=== PATIENT | male | born 1935 | race African-American/Black ===

== ENCOUNTER 2016-12-07 08:58 | Day surgery (SDC) | payer MEDICARE, OTHER ==
[~2016-12-07] VITALS: Ht 152.4 cm; Wt 61.4 kg
[~2016-12-07 08:58] MED LIST: ADV250 IH; AMLO-512 PO; ASPI-1182 PO; ATOR40TA28 PO; LOSA50TA37 PO; METO-558 PO; NAPR220T57 PO; TIOT185 IH
[2016-12-07] MEDS ORDERED: DEXAMETHASONE SOD PHOS 4 MG/ML VIAL IVP ONE (08:59)
[2016-12-07] MEDS ORDERED: LABETALOL HCL 5 MG/ML 20 ML VIAL IVP ONE (08:59)
[2016-12-07] MEDS ORDERED: MIDAZOLAM HCL 2 MG/2 ML VIAL IVP ONE (08:59)
[2016-12-07] MEDS ORDERED: HYALURONATE SOD/CHONDROITIN SOD 0.5 ML VIAL IO ONE (08:59)
[2016-12-07] MEDS ORDERED: HYALURONATE SODIUM 12 MG/ML 0.8 ML SYRINGE IO ONE (08:59)
[2016-12-07] MEDS ORDERED: POVIDONE-IODINE 10% 15 ML SOLUTION UD TP ONE (08:59)
[2016-12-07] MEDS ORDERED: FentaNYL CITRATE-PF 100 MCG/2 ML VIAL IVP ONE (08:59)
[2016-12-07] MEDS ORDERED: LIDOCAINE HCL/PF 1% 2 ML VIAL INJ ONE (08:59)
[2016-12-07] MEDS ORDERED: TETRACAINE HCL VISCOUS 0.5% 5 ML OPHTHALMIC SOLUTION OD ONE (08:59)
[2016-12-07] MEDS ORDERED: RINGERS SOLUTION,LACTATED 500 ML IV ONE ×2 (09:09→09:30)
[2016-12-07] MEDS ORDERED: MOXIFLOXACIN HCL 0.5% 3 ML OPHTHALMIC SOLUTION OD ONE (09:30)
[2016-12-07] MEDS ORDERED: DICLOFENAC SODIUM 0.1% 2.5 ML OPHTHALMIC SOLUTION OD ONE (09:30)
[2016-12-07] MEDS ORDERED: DICLOFENAC SODIUM 0.1% 2.5 ML OPHTHALMIC SOLUTION ONE (09:36)
[2016-12-07] MEDS ORDERED: MOXIFLOXACIN HCL 0.5% 3 ML OPHTHALMIC SOLUTION ONE (09:36)
[2016-12-07] MEDS ORDERED: TROPICAMIDE 1% 2 ML OPHTHALMIC SOLUTION ONE (09:36)
[2016-12-07] MEDS ORDERED: PHENYLEPHRINE HCL 2.5% 2 ML OPHTHALMIC SOLUTION ONE (09:36)
[2016-12-07] MEDS: TROPICAMIDE 1% 2 ML OPHTHALMIC SOLUTION OD SCH ×2 (09:57→10:06)
[2016-12-07] MEDS: PHENYLEPHRINE HCL 2.5% 2 ML OPHTHALMIC SOLUTION OD SCH ×2 (09:58→10:06)
[2016-12-07 10:02] LABS: GLUCOSE,POINT OF CARE 102 MG/DL (70-110)
== END 2016-12-07 13:15 | disposition home or self-care (01) ==
LOC: SURGERY 08:58
PROVIDERS: ATTEND Specialist
DX: H25.011 Cortical age-related cataract, right eye (principal); I10 Essential (primary) hypertension; M19.90 Unspecified osteoarthritis, unspecified site; E78.00 Pure hypercholesterolemia, unspecified; I69.954 Hemiplegia and hemiparesis following unspecified cerebrovascular disease affecting left non-dominant side; Z79.01 Long term (current) use of anticoagulants; Z87.01 Personal history of pneumonia (recurrent)
CPT/HCPCS: 82962; 93005; J1100; J2250; J3010; J3490; J7120

== ENCOUNTER 2020-02-17 02:12 | Inpatient (IN) | payer MEDICARE, OTHER ==
[~2020-02-17] VITALS: Ht 162.6 cm; Wt 55.8 kg
[~2020-02-17 02:12] MED LIST changes: -ADV250 IH; +AMLO-258 PO; -AMLO-512 PO; +ASPI-1111 PO; -ASPI-1182 PO; +FLUT1DIS6 IH; -METO-558 PO
[2020-02-17 02:44] LABS: EOSINOPHILS % (AUTO) 0 % (1.0-6.0); HEMATOCRIT 31.3 % (41-53); LYMPHOCYTES # (AUTO) 0.4 K/uL (1.0-4.8); LYMPHOCYTES % (AUTO) 4.9 % (22.0-44.0); MEAN CORPUSCULAR HEMOGLOBIN 26.6 pg (26.0-34.0); MEAN CORPUSCULAR HGB CONC 31.9 G/dL (31.0-37.0); MEAN CORPUSCULAR VOLUME 84 fL (80-100); MONOCYTES # (AUTO) 0.8 K/uL (0.1-1.0); MONOCYTES % (AUTO) 10.9 % (2.0-9.0); NEUTROPHILS # (AUTO) 6.4 K/uL (1.8-7.7); NEUTROPHILS % (AUTO) 84.2 % (40.0-70.0); PLATELET COUNT (AUTO) 186 K/uL (150-450); RED BLOOD CELL COUNT(AUTO) 3.75 MIL/uL (4.50-5.90); RED CELL DISTRIBUTION WIDTH 18.2 % (11.5-14.5)
[2020-02-17 02:52] LABS: CALCIUM, TOTAL 8.3 mg/dL (8.8-10.5); CREATININE 2.98 mg/dL (0.60-1.30); POTASSIUM 4.5 mmol/L (3.5-5.1)
[2020-02-17 02:56] LABS: D-DIMER 1.59 mg/L FEU (0.00-0.50); INR 1.1 (0.9-1.1); PROTHROMBIN TIME 11.1 SEC (9.4-11.6)
[2020-02-17] MEDS ORDERED: CHOL125C2 PO (02:58)
[2020-02-17] MEDS ORDERED: BISA-151 PO (02:58)
[2020-02-17] MEDS ORDERED: ASCO500 PO (02:58)
[2020-02-17] MEDS ORDERED: METO-558 PO (02:58)
[2020-02-17] MEDS ORDERED: CHOL100018 PO (02:58)
[2020-02-17] MEDS ORDERED: ACET-2865 PO (02:58)
[2020-02-17] MEDS ORDERED: ZINC220C14 PO (02:58)
[2020-02-17] MEDS ORDERED: PANT-31 PO (02:58)
[2020-02-17] MEDS ORDERED: DOCU-275 PO (02:58)
[2020-02-17] MEDS ORDERED: RINGERS SOLUTION,LACTATED 1,000 ML IV ONE (03:00)
[2020-02-17 03:17] LABS: ALBUMIN 2.4 g/dL (3.4-5.0); BILIRUBIN,TOTAL 1.1 mg/dL (0.1-1.0); C-REACTIVE PROTEIN QUANT 16.45 mg/dL (0.00-0.30); TOTAL PROTEIN, SERUM 7.5 g/dL (6.4-8.2)
[2020-02-17 03:31] LABS: COVID AG,FIA SOURCE NASOPHARYNGEAL
[2020-02-17 03:43] LABS: ERYTHROCYTE SEDIMENTATION RATE 98 MM/HR (0-15)
[2020-02-17 03:57] LABS: INFLUENZA TYPE A NEGATIVE FOR TYPE A (NEGATIVE); INFLUENZA TYPE B NEGATIVE FOR TYPE B (NEGATIVE)
[2020-02-17] MEDS ORDERED: 0.9% SODIUM CHLORIDE 10 ML SYRINGE IVP PRN (04:30)
[2020-02-17] MEDS ORDERED: ONDANSETRON HCL 4 MG/2 ML VIAL IVP PRN (04:30)
[2020-02-17] MEDS ORDERED: ACETAMINOPHEN 325 MG TABLET PO PRN (04:30)
[2020-02-17 06:52] VITALS: BP 130/51
[2020-02-17 08:32] VITALS: BP 123/68
[2020-02-17] MEDS ORDERED: DEXAMETHASONE 2 MG TABLET PO ONE (10:00)
[2020-02-17 10:47] LABS: BASOPHILS % (AUTO) 0.1 % (0.0-2.0); EOSINOPHILS % (AUTO) 0.1 % (1.0-6.0); HEMATOCRIT 31.7 % (41-53); HEMOGLOBIN 9.8 g/dL (13.5-17.5); LYMPHOCYTES # (AUTO) 0.6 K/uL (1.0-4.8); LYMPHOCYTES % (AUTO) 6.6 % (22.0-44.0); MEAN CORPUSCULAR HGB CONC 30.8 G/dL (31.0-37.0); MEAN CORPUSCULAR VOLUME 85 fL (80-100); MONOCYTES # (AUTO) 0.9 K/uL (0.1-1.0); MONOCYTES % (AUTO) 10.6 % (2.0-9.0); NEUTROPHILS # (AUTO) 6.9 K/uL (1.8-7.7); NEUTROPHILS % (AUTO) 82.6 % (40.0-70.0); PLATELET COUNT (AUTO) 203 K/uL (150-450); RED BLOOD CELL COUNT(AUTO) 3.75 MIL/uL (4.50-5.90); RED CELL DISTRIBUTION WIDTH 18.5 % (11.5-14.5)
[2020-02-17] MEDS: SODIUM CHLORIDE 0.45% 1,000 ML IV SCH ×2 (10:49→20:10)
[2020-02-17 11:04] LABS: CALCIUM, TOTAL 8.5 mg/dL (8.8-10.5); CREATININE 2.98 mg/dL (0.60-1.30); POTASSIUM 4.1 mmol/L (3.5-5.1)
[2020-02-17 11:10] LABS: ALBUMIN 2.4 g/dL (3.4-5.0); BILIRUBIN,TOTAL 1.1 mg/dL (0.1-1.0); TOTAL PROTEIN, SERUM 7.4 g/dL (6.4-8.2)
[2020-02-17 11:59] VITALS: BP 132/68
[2020-02-17 13:20] LABS: % IRON SATURATION 14.3 % (30-44)
[2020-02-17 16:12] VITALS: BP 145/71
[2020-02-17] MEDS: PANTOPRAZOLE SODIUM 40 MG/VIAL IVP SCH (20:09)
[2020-02-17] MEDS: ATORVASTATIN CALCIUM 40 MG TABLET PO SCH (20:10)
[2020-02-17] MEDS: ASCORBIC ACID 500 MG TABLET PO SCH (20:10)
[2020-02-17] MEDS: FLUTICASONE/SALMETEROL 250-50 MCG/INH INHALER [60] IH SCH (20:10)
[2020-02-17 21:07] VITALS: BP 116/67
[2020-02-18] VITALS (7 sets, daily range): BP systolic 122–147; BP diastolic 47–78
[2020-02-18] MEDS: SODIUM CHLORIDE 0.45% 1,000 ML IV SCH (05:57)
[2020-02-18 08:04] LABS: MAGNESIUM 3.2 mg/dL (1.80-2.40); PHOSPHORUS 4.9 mg/dL (2.5-4.9)
[2020-02-18] MEDS: PANTOPRAZOLE SODIUM 40 MG/VIAL IVP SCH ×2 (08:27→21:05)
[2020-02-18 08:44] LABS: BASOPHILS % (AUTO) 0.6 % (0.0-2.0); EOSINOPHILS % (AUTO) 0.1 % (1.0-6.0); HEMATOCRIT 30.1 % (41-53); HEMOGLOBIN 9.3 g/dL (13.5-17.5); LYMPHOCYTES # (AUTO) 0.6 K/uL (1.0-4.8); LYMPHOCYTES % (AUTO) 5.8 % (22.0-44.0); MEAN CORPUSCULAR HEMOGLOBIN 26.1 pg (26.0-34.0); MEAN CORPUSCULAR HGB CONC 30.8 G/dL (31.0-37.0); MEAN CORPUSCULAR VOLUME 85 fL (80-100); MONOCYTES # (AUTO) 0.8 K/uL (0.1-1.0); NEUTROPHILS # (AUTO) 9.6 K/uL (1.8-7.7); PLATELET COUNT (AUTO) 217 K/uL (150-450); RED BLOOD CELL COUNT(AUTO) 3.55 MIL/uL (4.50-5.90); RED CELL DISTRIBUTION WIDTH 18.4 % (11.5-14.5)
[2020-02-18 08:45] LABS: NEUTROPHILS % (AUTO) 86.5 % (40.0-70.0)
[2020-02-18 08:59] LABS: CALCIUM, TOTAL 8.4 mg/dL (8.8-10.5); CREATININE 3.55 mg/dL (0.60-1.30); POTASSIUM 4.4 mmol/L (3.5-5.1)
[2020-02-18] MEDS: AmLODIPine BESYLATE 10 MG TABLET PO SCH (09:00)
[2020-02-18] MEDS: ASCORBIC ACID 500 MG TABLET PO SCH ×2 (09:00→21:00)
[2020-02-18] MEDS ORDERED: LOSARTAN POTASSIUM 50 MG TABLET PO SCH (09:00)
[2020-02-18] MEDS ORDERED: DEXAMETHASONE 2 MG TABLET PO SCH (09:00)
[2020-02-18] MEDS: ZINC SULFATE 220 MG CAPSULE PO SCH (09:00)
[2020-02-18] MEDS: CHOLECALCIFEROL (VIT D3) 5,000 [125 MCG] UNITS CAPSULE PO SCH (09:00)
[2020-02-18] MEDS: DOCUSATE SODIUM 100 MG CAPSULE PO SCH (09:00)
[2020-02-18] MEDS: FLUTICASONE/SALMETEROL 250-50 MCG/INH INHALER [60] IH SCH ×2 (09:00→21:00)
[2020-02-18] MEDS: DEXTROSE 5%-WATER 1,000 ML IV SCH ×2 (10:33→23:31)
[2020-02-18] MEDS ORDERED: SODIUM CHLORIDE 0.9% 2,000 ML ONE (13:52)
[2020-02-18] MEDS: ACETAMINOPHEN 650 MG RECTAL SUPPOSITORY PR PRN (16:13)
[2020-02-18 17:07] LABS: ABG A-A DIFF O2 474.6 mmHg (10-20.0); ABG BASE EXCESS -2.9 mmol/L (-2.0-3.0); ABG CARBOXYHEMOGLOBIN 0.8 % (0.0-1.5); ABG HCO3 22.5 mmol/L (22.0-26.0); ABG METHEMOGLOBIN 0.3 % (0.0-1.5); ABG OXYGEN CONTENT 12.2 mL/dL (15.0-23.0); ABG OXYGEN SATURATION 93.6 % (95.0-98.0); ABG OXYHEMOGLOBIN 92.6 % (94.0-100.0); ABG PCO2 29 mmHg (35-45); ABG PH 7.478 (7.35-7.450); ABG TOTAL HEMOGLOBIN 9.3 G/dL (12.0-18.0); PO2, ARTERIAL BG 66.8 mmHg (71.0-79.0); SOURCE, BLOOD GAS ARTERIAL; TEMPERATURE, FAHRENHEIT, BG 97.7 FAHREN (96.0-98.6)
[2020-02-18 17:09] LABS: SITE, BLOOD GAS RT RADIAL
[2020-02-18 17:10] LABS: O2 DEVICE,BLOOD GAS HFNC (ROOM AIR)
[2020-02-18] MEDS: ATORVASTATIN CALCIUM 40 MG TABLET PO SCH (21:00)
[2020-02-18] MEDS ORDERED: DEXAMETHASONE SOD PHOS 4 MG/ML VIAL IVP ONE (23:00)
[2020-02-19 04:18] VITALS: BP 128/67
[2020-02-19] MEDS ORDERED: DEXAMETHASONE SOD PHOS 4 MG/ML VIAL IVP SCH (06:00)
[2020-02-19 06:57] LABS: BASOPHILS % (AUTO) 0.1 % (0.0-2.0); EOSINOPHILS % (AUTO) 0 % (1.0-6.0); HEMATOCRIT 27.3 % (41-53); HEMOGLOBIN 8.4 g/dL (13.5-17.5); LYMPHOCYTES # (AUTO) 0.2 K/uL (1.0-4.8); LYMPHOCYTES % (AUTO) 1.8 % (22.0-44.0); MEAN CORPUSCULAR HEMOGLOBIN 26.5 pg (26.0-34.0); MEAN CORPUSCULAR HGB CONC 30.8 G/dL (31.0-37.0); MEAN CORPUSCULAR VOLUME 86 fL (80-100); MONOCYTES # (AUTO) 0.3 K/uL (0.1-1.0); MONOCYTES % (AUTO) 2.6 % (2.0-9.0); NEUTROPHILS # (AUTO) 11.2 K/uL (1.8-7.7); PLATELET COUNT (AUTO) 219 K/uL (150-450); RED BLOOD CELL COUNT(AUTO) 3.17 MIL/uL (4.50-5.90); RED CELL DISTRIBUTION WIDTH 18.5 % (11.5-14.5)
[2020-02-19 07:18] LABS: NEUTROPHILS % (AUTO) 95.5 % (40.0-70.0)
[2020-02-19 07:33] LABS: CALCIUM, TOTAL 7.9 mg/dL (8.8-10.5); CREATININE 4.73 mg/dL (0.60-1.30); MAGNESIUM 2.7 mg/dL (1.80-2.40); PHOSPHORUS 7.4 mg/dL (2.5-4.9); POTASSIUM 4.3 mmol/L (3.5-5.1)
[2020-02-19 07:56] LABS: C-REACTIVE PROTEIN QUANT 30.05 mg/dL (0.00-0.30)
[2020-02-19 08:00] VITALS: BP 103/57
[2020-02-19] MEDS ORDERED: FAMOTIDINE 10 MG/ML 2 ML VIAL IVP SCH (09:00)
[2020-02-19] MEDS: DOCUSATE SODIUM 100 MG CAPSULE PO SCH (09:00)
[2020-02-19] MEDS: FLUTICASONE/SALMETEROL 250-50 MCG/INH INHALER [60] IH SCH ×2 (09:00→21:00)
[2020-02-19] MEDS: ASCORBIC ACID 500 MG TABLET PO SCH ×2 (09:00→21:00)
[2020-02-19] MEDS: CHOLECALCIFEROL (VIT D3) 5,000 [125 MCG] UNITS CAPSULE PO SCH (09:00)
[2020-02-19] MEDS: AmLODIPine BESYLATE 10 MG TABLET PO SCH (09:00)
[2020-02-19] MEDS: ZINC SULFATE 220 MG CAPSULE PO SCH (09:00)
[2020-02-19] MEDS: PANTOPRAZOLE SODIUM 40 MG/VIAL IVP SCH ×2 (09:04→21:52)
[2020-02-19 11:28] VITALS: BP 107/40
[2020-02-19 11:43] LABS: APPEARANCE,URINE CLOUDY (CLEAR); GLUCOSE, URINE (UA) NEGATIVE (NEGATIVE); KETONES,URINE NEGATIVE (NEGATIVE); LEUKOCYTE ESTERASE ,URINE NEGATIVE (NEGATIVE); NITRATE,URINE NEGATIVE (NEGATIVE); OCCULT BLOOD,URINE TRACE (NEGATIVE); PROTEIN,URINE SEE CONFIRM (NEGATIVE)
[2020-02-19 11:44] LABS: BILIRUBIN,URINE PRELIM. POSITIVE (NEGATIVE)
[2020-02-19 11:48] LABS: CREATININE,URINE RANDOM 142.9 mg/dL (30.0-125.0); PROTEIN,URINE RANDOM 246 mg/dL (0-11.9); SODIUM,URINE RANDOM 10 mmol/l (20-110); UREA NITROGEN,URINE RANDOM 643 mg/dL (350-1000)
[2020-02-19 11:53] LABS: AMORPHOUS SEDIMENT,UR Many /LPF (None Seen); BACTERIA,URINE None Seen /HPF (None Seen); RBC,URINE 0-2 /HPF (0-2); SULFOSALICYLIC ACID,URINE 3+ (Negative); WBC,URINE None Seen /HPF (0-5)
[2020-02-19] MEDS: DEXAMETHASONE SOD PHOS 4 MG/ML VIAL IVP SCH (12:46)
[2020-02-19] MEDS: DEXTROSE 5%-WATER 1,000 ML IV SCH (14:30)
[2020-02-19] MEDS ORDERED: *CLINICAL-PERIPHERAL PARENTERAL NUTRITION DOSING CLINICAL ONE (15:00)
[2020-02-19 15:41] VITALS: BP 141/61
[2020-02-19 20:21] VITALS: BP 145/72
[2020-02-19] MEDS: ATORVASTATIN CALCIUM 40 MG TABLET PO SCH (21:00)
[2020-02-19] MEDS ORDERED: DEXTROSE 5%-WATER 1,000 ML IV SCH (22:00)
[2020-02-19] MEDS ORDERED: [UNRECOGNIZED DRUG - REMARK] IV SCH ×4 (22:00)
[2020-02-20] VITALS (16 sets, daily range): BP systolic 76–118; BP diastolic 38–62
[2020-02-20 06:47] LABS: BASOPHILS % (AUTO) 0.1 % (0.0-2.0); EOSINOPHILS % (AUTO) 0 % (1.0-6.0); HEMATOCRIT 22.4 % (41-53); LYMPHOCYTES # (AUTO) 0.3 K/uL (1.0-4.8); LYMPHOCYTES % (AUTO) 2.3 % (22.0-44.0); MEAN CORPUSCULAR HEMOGLOBIN 26.4 pg (26.0-34.0); MEAN CORPUSCULAR HGB CONC 31.5 G/dL (31.0-37.0); MEAN CORPUSCULAR VOLUME 84 fL (80-100); MONOCYTES # (AUTO) 0.5 K/uL (0.1-1.0); MONOCYTES % (AUTO) 3.6 % (2.0-9.0); NEUTROPHILS # (AUTO) 12.4 K/uL (1.8-7.7); PLATELET COUNT (AUTO) 194 K/uL (150-450); RED BLOOD CELL COUNT(AUTO) 2.67 MIL/uL (4.50-5.90); RED CELL DISTRIBUTION WIDTH 17.9 % (11.5-14.5)
[2020-02-20] MEDS: DEXAMETHASONE SOD PHOS 4 MG/ML VIAL IVP SCH (06:54)
[2020-02-20 07:55] LABS: CALCIUM, TOTAL 8.1 mg/dL (8.8-10.5); CREATININE 3.9 mg/dL (0.60-1.30); MAGNESIUM 2.3 mg/dL (1.80-2.40); PHOSPHORUS 4.2 mg/dL (2.5-4.9); POTASSIUM 4.1 mmol/L (3.5-5.1)
[2020-02-20] MEDS ORDERED: EPOETIN ALFA 10,000 UNITS/ML VIAL SQ ONE (08:15)
[2020-02-20 08:22] LABS: C-REACTIVE PROTEIN QUANT 29.86 mg/dL (0.00-0.30)
[2020-02-20] MEDS: DOCUSATE SODIUM 100 MG CAPSULE PO SCH (09:00)
[2020-02-20] MEDS: FLUTICASONE/SALMETEROL 250-50 MCG/INH INHALER [60] IH SCH ×3 (09:00→21:00)
[2020-02-20] MEDS: AmLODIPine BESYLATE 10 MG TABLET PO SCH (09:00)
[2020-02-20] MEDS: ASCORBIC ACID 500 MG TABLET PO SCH ×2 (09:00→20:41)
[2020-02-20] MEDS: PANTOPRAZOLE SODIUM 40 MG/VIAL IVP SCH ×2 (09:00→20:34)
[2020-02-20] MEDS: ZINC SULFATE 220 MG CAPSULE PO SCH (09:00)
[2020-02-20] MEDS: CHOLECALCIFEROL (VIT D3) 5,000 [125 MCG] UNITS CAPSULE PO SCH (09:00)
[2020-02-20] MEDS ORDERED: SODIUM CHLORIDE 0.9% 500 ML IV ONE (13:06)
[2020-02-20 13:31] LABS: ABG A-A DIFF O2 613.5 mmHg (10-20.0); ABG BASE EXCESS -5.8 mmol/L (-2.0-3.0); ABG CARBOXYHEMOGLOBIN 0.5 % (0.0-1.5); ABG HCO3 20.1 mmol/L (22.0-26.0); ABG METHEMOGLOBIN 0.2 % (0.0-1.5); ABG OXYGEN CONTENT 8.9 mL/dL (15.0-23.0); ABG OXYHEMOGLOBIN 94.3 % (94.0-100.0); ABG PCO2 23 mmHg (35-45); ABG PH 7.498 (7.35-7.450); PO2, ARTERIAL BG 76.5 mmHg (71.0-79.0); SOURCE, BLOOD GAS ARTERIAL; TEMPERATURE, FAHRENHEIT, BG 98.6 FAHREN (96.0-98.6)
[2020-02-20 13:32] LABS: ABG TOTAL HEMOGLOBIN 6.6 G/dL (12.0-18.0); SITE, BLOOD GAS RT RADIAL
[2020-02-20] MEDS: ACETAMINOPHEN 650 MG RECTAL SUPPOSITORY PR PRN (13:45)
[2020-02-20] MEDS ORDERED: HEPARIN SODIUM,PORCINE 1,000 UNITS/ML VIAL IVP ONE ×2 (19:32→19:33)
[2020-02-20] MEDS: ATORVASTATIN CALCIUM 40 MG TABLET PO SCH (20:41)
[2020-02-20] MEDS ORDERED: [UNRECOGNIZED DRUG - REMARK] IV SCH ×4 (22:00)
[2020-02-21 00:55] VITALS: BP 114/73
[2020-02-21 03:28] VITALS: BP 107/60
[2020-02-21] MEDS: DEXAMETHASONE SOD PHOS 4 MG/ML VIAL IVP SCH (06:12)
[2020-02-21 06:54] LABS: BASOPHILS % (AUTO) 0.2 % (0.0-2.0); EOSINOPHILS % (AUTO) 0.1 % (1.0-6.0); HEMATOCRIT 24.7 % (41-53); HEMOGLOBIN 8.1 g/dL (13.5-17.5); LYMPHOCYTES # (AUTO) 0.2 K/uL (1.0-4.8); LYMPHOCYTES % (AUTO) 2.1 % (22.0-44.0); MEAN CORPUSCULAR HEMOGLOBIN 27.2 pg (26.0-34.0); MEAN CORPUSCULAR HGB CONC 32.9 G/dL (31.0-37.0); MEAN CORPUSCULAR VOLUME 83 fL (80-100); MONOCYTES # (AUTO) 0.5 K/uL (0.1-1.0); MONOCYTES % (AUTO) 5.3 % (2.0-9.0); NEUTROPHILS # (AUTO) 9.5 K/uL (1.8-7.7); PLATELET COUNT (AUTO) 237 K/uL (150-450); RED BLOOD CELL COUNT(AUTO) 2.98 MIL/uL (4.50-5.90); RED CELL DISTRIBUTION WIDTH 17.5 % (11.5-14.5)
[2020-02-21 07:38] LABS: ALBUMIN 1.6 g/dL (3.4-5.0); BILIRUBIN,TOTAL 1.5 mg/dL (0.1-1.0); CALCIUM, TOTAL 7.4 mg/dL (8.8-10.5); CREATININE 6.21 mg/dL (0.60-1.30); MAGNESIUM 2.3 mg/dL (1.80-2.40); PHOSPHORUS 5.8 mg/dL (2.5-4.9); POTASSIUM 4.4 mmol/L (3.5-5.1)
[2020-02-21 07:48] VITALS: BP 135/69
[2020-02-21 07:51] LABS: NEUTROPHILS % (AUTO) 92.3 % (40.0-70.0)
[2020-02-21 08:29] LABS: C-REACTIVE PROTEIN QUANT 27.57 mg/dL (0.00-0.30)
[2020-02-21] MEDS: ASCORBIC ACID 500 MG TABLET PO SCH (08:34)
[2020-02-21] MEDS: AmLODIPine BESYLATE 10 MG TABLET PO SCH (08:34)
[2020-02-21] MEDS: DOCUSATE SODIUM 100 MG CAPSULE PO SCH (08:34)
[2020-02-21] MEDS: CHOLECALCIFEROL (VIT D3) 5,000 [125 MCG] UNITS CAPSULE PO SCH (08:34)
[2020-02-21] MEDS: ZINC SULFATE 220 MG CAPSULE PO SCH (08:35)
[2020-02-21] MEDS: PANTOPRAZOLE SODIUM 40 MG/VIAL IVP SCH (08:35)
[2020-02-21] MEDS: FLUTICASONE/SALMETEROL 250-50 MCG/INH INHALER [60] IH SCH (08:36)
[2020-02-21 12:15] VITALS: BP 122/64
[2020-02-21] MEDS ORDERED: MORPHINE SULFATE 2 MG/ML SYRINGE IVP PRN (14:45)
[2020-02-21 16:24] VITALS: BP 89/42
== END 2020-02-21 17:49 | disposition expired | DRG 177 ==
LOC: EMS 02:16 → 5N 04:27
PROVIDERS: ADMIT Hospitalist; ATTEND Hospitalist
PROC: 06HY33Z Insertion of Infusion Device into Lower Vein, Percutaneous Approach (ICD-10-PCS; principal; 2020-02-18)
PROC: B54MZZA Ultrasonography of Right Upper Extremity Veins, Guidance (ICD-10-PCS; 2020-02-18)
PROC: 30233N1 Transfusion of Nonautologous Red Blood Cells into Peripheral Vein, Percutaneous Approach (ICD-10-PCS; 2020-02-20)
DX: U07.1 COVID-19 (principal); A41.89 Other specified sepsis; E43 Unspecified severe protein-calorie malnutrition; J12.89 Other viral pneumonia; J96.01 Acute respiratory failure with hypoxia; K92.2 Gastrointestinal hemorrhage, unspecified; E87.0 Hyperosmolality and hypernatremia; N17.9 Acute kidney failure, unspecified; J44.0 Chronic obstructive pulmonary disease with (acute) lower respiratory infection; E86.0 Dehydration; D72.810 Lymphocytopenia; E78.5 Hyperlipidemia, unspecified; Z79.899 Other long term (current) drug therapy; I10 Essential (primary) hypertension; F03.90 Unspecified dementia, unspecified severity, without behavioral disturbance, psychotic disturbance, mood disturbance, and anxiety; Z86.73 Personal history of transient ischemic attack (TIA), and cerebral infarction without residual deficits; E03.9 Hypothyroidism, unspecified; Z68.21 Body mass index [BMI] 21.0-21.9, adult; E55.9 Vitamin D deficiency, unspecified; J44.9 Chronic obstructive pulmonary disease, unspecified; R79.89 Other specified abnormal findings of blood chemistry; Z66 Do not resuscitate; R79.82 Elevated C-reactive protein (CRP); Z51.5 Encounter for palliative care; D64.9 Anemia, unspecified
CPT/HCPCS: 36600; 76700; 82270; 82271; 82570; 82728; 82805; 83540; 83550; 83615; 83735; 84100; 84156; 84300; 84540; 85379; 85651; 86140; 86850; 86900; 86901; 86923; 87340; 87426; 87804; 92526; 93005; C9113; J0885; J1100; J1644; J2270; J3490; J3535; J7030; J7040; J7060; J7070; J7120; J8540; P9016; 36415-L1; 36415-TC; 71045-TC; U0003